=== PATIENT | female | born 1990 | race Caucasian/White ===

== ENCOUNTER 2020-06-09 17:06 | Outpatient (CLI) | payer BC ==
[2020-06-09] MEDS ORDERED: ALDOMET250 MG PO (17:37)
[2020-06-09] MEDS ORDERED: PEPCID40 MG PO (17:38)
[2020-06-09] MEDS ORDERED: PRENAVITE1 TAB PO (17:38)
[2020-06-09] MEDS ORDERED: CELEXA20 MG PO (17:38)
[2020-06-09] MEDS ORDERED: SINGULAIR10 MG PO (17:38)
[2020-06-09 18:19] LABS: BASOPHILS 0.1 % (0-2); HEMATOCRIT 35.9 % (36.0-48.0); HEMOGLOBIN 11.8 g/dL (12-16); IMMATURE GRANULOCYTES 0.6 % (0-5); LYMPHOCYTE ABS# 1.84 10x3/uL (1.18-3.74); LYMPHOCYTES 12.3 % (15-50); MCH 29.2 pg (26.0-34.0); MCHC 32.9 g/dL (31.0-37.0); MCV 88.9 fL (80.0-100.0); MEAN PLATELET VOLUME 11.6 fL (7.4-10.4); MONOCYTES 5.8 % (2-11); NEUTROPHIL ABS# 12.02 10x3/uL (1.56-6.13); NEUTROPHILS 80.2 % (40-80); PLATELET COUNT 209 10x3/uL (130-400); RBC 4.04 10x6/uL (4.00-5.40); RDW 13.8 % (11.5-14.5)
[2020-06-09 18:29] LABS: CALC OSMOLALITY 275 mosm/kg (275-300); CALCIUM 9.4 mg/dL (8.5-10.1); CARBON DIOXIDE 24.7 mmol/L (21.0-32.0); CHLORIDE - SERUM 104 mmol/L (98-107); CREATININE - SERUM 0.7 mg/dL (0.6-1.3); GLUCOSE 112 mg/dL (74-106); POTASSIUM - SERUM 3.9 mmol/L (3.5-5.1); SODIUM 138 mmol/L (136-145); UREA NITROGEN 10 mg/dL (7-18); eGFR NON AFRICAN AMERICAN > 90 mL/min (90-120)
[2020-06-09 18:29] LABS: CREATININE - URINE 184.7 mg/dL (30-125); PRO/CRE RATIO URINE 0.2 mg/g; PROTEIN - URINE 39.5 mg/dL (0.0-11.9)
[2020-06-09 18:35] LABS: ALBUMIN 2.4 g/dL (3.4-5.0); ALKALINE PHOSPHATASE 98 U/L (30-120); ALT (SGPT) 11 U/L (10-68); BILIRUBIN - INDIRECT 0.16 mg/dL (0.00-1.00); BILIRUBIN - TOTAL 0.19 mg/dL (0.2-1.3)
[2020-06-09 18:37] LABS: BILIRUBIN - DIRECT 0.03 mg/dL (0.00-0.30)
--- NOTE | 2020-06-10 04:24 | NUR ---
monitors applied for NST
--- NOTE | 2020-06-10 04:31 | NUR ---
labetalol 200mg po per md orders, see emar
== END 2020-06-10 11:00 | disposition home or self-care (01) ==
LOC: D.LDO 17:06 → D.LD 19:39 → D.LDO 06-10 11:00
PROVIDERS: ATTEND Student in an Organized Health Care Education/Training Program
DX: O47.9 False labor, unspecified (principal)

== ENCOUNTER 2020-06-13 21:41 | Inpatient (IN) | payer BC ==
[~2020-06-13] VITALS: Ht 170.2 cm; Wt 139.7 kg
[~2020-06-13 21:41] MED LIST: ALDOMET250 MG PO; CELEXA20 MG PO; PEPCID40 MG PO; PRENAVITE1 TAB PO; SINGULAIR10 MG PO
[2020-06-13 23:08] LABS: BASOPHILS 0.1 % (0-2); EOSINOPHILS 0.9 % (0-7); HEMATOCRIT 35.3 % (36.0-48.0); HEMOGLOBIN 11.4 g/dL (12-16); IMMATURE GRANULOCYTES 0.4 % (0-5); LYMPHOCYTE ABS# 1.91 10x3/uL (1.18-3.74); LYMPHOCYTES 14.8 % (15-50); MCHC 32.3 g/dL (31.0-37.0); MCV 89.8 fL (80.0-100.0); MEAN PLATELET VOLUME 11.7 fL (7.4-10.4); MONOCYTES 6.3 % (2-11); NEUTROPHIL ABS# 10.01 10x3/uL (1.56-6.13); NEUTROPHILS 77.5 % (40-80); PLATELET COUNT 237 10x3/uL (130-400); RBC 3.93 10x6/uL (4.00-5.40); RDW 13.9 % (11.5-14.5); WBC 12.9 10x3/uL (4.8-10.8)
[2020-06-13 23:22] LABS: CALC OSMOLALITY 278 mosm/kg (275-300); CALCIUM 9.2 mg/dL (8.5-10.1); CARBON DIOXIDE 25.4 mmol/L (21.0-32.0); CHLORIDE - SERUM 107 mmol/L (98-107); CREATININE - SERUM 0.7 mg/dL (0.6-1.3); GLUCOSE 93 mg/dL (74-106); POTASSIUM - SERUM 4.5 mmol/L (3.5-5.1); SODIUM 140 mmol/L (136-145); UREA NITROGEN 13 mg/dL (7-18); eGFR NON AFRICAN AMERICAN > 90 mL/min (90-120)
[2020-06-13 23:28] LABS: ALBUMIN 2.4 g/dL (3.4-5.0); ALKALINE PHOSPHATASE 103 U/L (30-120); ALT (SGPT) 11 U/L (10-68); BILIRUBIN - INDIRECT 0.14 mg/dL (0.00-1.00); BILIRUBIN - TOTAL 0.18 mg/dL (0.2-1.3); URIC ACID 7.7 mg/dL (2.6-7.2)
[2020-06-13 23:30] LABS: BILIRUBIN - DIRECT 0.04 mg/dL (0.00-0.30)
[2020-06-14] MEDS ORDERED: NORMODYNE / TR100 MG PO (00:55)
[2020-06-14 00:56] VITALS: BP 144/90; BMI 48.3
[2020-06-14 09:14] LABS: UDS - AMPHET NEGATIVE QUAL (NEGATIVE); UDS - BARB NEGATIVE QUAL (NEGATIVE); UDS - BENZO NEGATIVE QUAL (NEGATIVE); UDS - COCAINE NEGATIVE QUAL (NEGATIVE); UDS - OPIATE NEGATIVE QUAL (NEGATIVE); UDS - PCP NEGATIVE QUAL (NEGATIVE); UDS - THC NEGATIVE QUAL (NEGATIVE)
[2020-06-14 09:53] VITALS: Ht 170.2 cm; Wt 139.7 kg
--- NOTE | 2020-06-14 15:54 | NUR ---
UP TO BR, VOIDED 800 MLS. INSTRUCTED ON PERICARE WITH RETURN DEMONSTATION FROM PT WITH PERICARE WASH WITH BETADINE, TUX, AND DERMAPLAST. STEADY GAIT NOTED. CHUX CHANGED. QBL ON TOWEL AND CHUX 23 MLS. ICE WATER PROVIDED. DENIES ADDITIONAL NEEDS. BED IN LOW POSITION WITH SRUP X2. CALL LIGHT AND PHONE WITHIN REACH.
--- NOTE | 2020-06-14 19:20 | NUR ---
THIS RN AND Debbie CARDOSO RN TO BEDSIDE FOR BEDSIDE SHIFT ASSESSMENT. UPON ENTERING THE ROOM, PT FOUND TO BE SITTING UP IN BED ASLEEP W/BABY UP IN ARMS. PT WAKENED AND EDUCATED ON INFANT SAFETY. PLACED IN OPEN CRIB AT BEDSIDE. SHIFT ASSESSMENT COMPLETED. SEE FLOWSHEET. PT DENIES PAIN. REPORTS SIG OTHER IS BRINGING THEM SUPPER AND DRINKS, THEREFORE DENIES NEEDS AT THIS TIME.
[2020-06-14 19:21] VITALS: BP 133/71
--- NOTE | 2020-06-14 20:45 | NUR ---
ROUNDS MADE. PT SITTING UP IN BED VISITING W/SIG OTHER. DENIES PAIN OR NEEDS AT THIS TIME.
--- NOTE | 2020-06-14 21:40 | NUR ---
RN TO BEDSIDE TO INFORM PT THAT CARE WILL BE TURNED OVER TO Debbie ANSARI RN AT THIS TIME. PT CURRENTLY SITTING IN BED W/SPOUSE AND BABY. DENIES PAIN OR NEEDS.
--- NOTE | 2020-06-14 22:30 | NUR ---
TAKING OVER CARE FOR THIS PT. SHE IS AWAKE AND ALERT TRYING TO FEED THE BABY. SHE HAS NO C/O AT THIS TIME. MEDICATION GIVEN PO.
--- NOTE | 2020-06-14 22:30 | NUR ---
REPORT GIVEN TO Debbie ANSARI RN
--- NOTE | 2020-06-15 | NUR ---
STILL AWAKE AND HOLDING BABY. NO C/O. AT BEDSIDE.
--- NOTE | 2020-06-15 02:40 | NUR ---
PT IS SLEEPING. NO C/O OR NEEDS AT THIS TIME
[2020-06-15 04:30] VITALS: BP 117/66
--- NOTE | 2020-06-15 04:30 | NUR ---
PT IS RESTING QUIETLY. NO C/O. SHE WAS AWAKE FOR VS.
[2020-06-15 05:42] LABS: BASOPHILS 0.2 % (0-2); EOSINOPHILS 1.2 % (0-7); HEMATOCRIT 32.6 % (36.0-48.0); HEMOGLOBIN 10.3 g/dL (12-16); IMMATURE GRANULOCYTES 0.3 % (0-5); LYMPHOCYTES 20.8 % (15-50); MCH 28.7 pg (26.0-34.0); MCHC 31.6 g/dL (31.0-37.0); MCV 90.8 fL (80.0-100.0); MEAN PLATELET VOLUME 11.8 fL (7.4-10.4); MONOCYTES 7.5 % (2-11); NEUTROPHIL ABS# 8.44 10x3/uL (1.56-6.13); RBC 3.59 10x6/uL (4.00-5.40)
[2020-06-15 05:51] LABS: PLATELET COUNT 183 10x3/uL (130-400)
--- NOTE | 2020-06-15 06:50 | NUR ---
PT IS UP AND GETTING DRESSED. SHE HAS NO C/O AT THIS TIME. NO NEEDS
[2020-06-15 07:15] LABS: RAPID PLASMA REAGIN Non Reactive (Non Reactive)
[2020-06-15 07:31] VITALS: BP 137/79
--- NOTE | 2020-06-15 07:31 | NUR ---
PT LYING SUPINE IN BED. AWAKE. AAO X 3. VSS. HRRR WITHOUT AUDIBLE MURMUR. BBS CLEAR. BS X 4. ABDOMEN SOFT/NON-DISTENDED. STATES PASSING GAS AND HAD BM LAST PM. FUNDUS FIRM AT U/U. RUBRA LOCHIA SMALL AMT. PT STATES HAS PASSED A FEW SMALL CLOTS. PT INSTRUCTED TO NOTIFY NURSE OF PASSING CLOTS SIZE OF EGG OR BIGGER/SOAKING PAD IN ONE HOUR. PT VERBALIZES UNDERSTANDING. NEG HOMANS' SIGN. PPP. 1+/1+ PITTING EDEMA NOTED TO ANKLES. PT STATES VOIDING WITHOUT DIFFICULTY. SL TO LEFT HAND. SITE CLEAR. PT DENIES PAIN OR NEEDS. SR UP X 2. CALL LIGHT IN REACH.
--- NOTE | 2020-06-15 08:53 | NUR ---
PT PETROL TANKER DRIVER LIGHT. THIS NURSE TO ROOM. PT IN BATHROOM. PERINEUM INSPECTED WITHOUT HEMATOMA, ETC. SKIN INTACT. PT C/O PAIN TO PERINEUM OF "2-3" ON 0-10 PAIN SCALE. MOTRIN 600 MG GIVEN PO PER PT REQUEST. INSTRUCTED ON MED. VERBALIZES UNDERSTANDING.
--- NOTE | 2020-06-15 09:40 | NUR ---
PT SITTING UP IN BED. TALKING ON PHONE. STATES PAIN RELIEVED. DENIES NEEDS OR C/O.
--- NOTE | 2020-06-15 11:00 | NUR ---
PT SITTING UP IN BED. PLAYING CARDS WITH SO. DENIES PAIN OR NEEDS.
--- NOTE | 2020-06-15 12:30 | NUR ---
DR DE ANDA VISITS WITH PT. ORDERS RECEIVED.
--- NOTE | 2020-06-15 13:00 | NUR ---
PT SITTING UP IN BED. VISITING WITH SO. DENIES NEEDS OR C/O.
--- NOTE | 2020-06-15 14:35 | NUR ---
DISCHARGE INSTRUCTIONS GIVEN TO PT. PT VERBALIZES UNDERSTANDING OF ALL INSTRUCTIONS. COPIES GIVEN TO PT. PT STATES FAMILY MEMBER TO BRING PT BP MED TO PT. PT GIVEN INSTRUCTIONS ON ROOMING IN AND POLICY. FORM EXPLAINED TO AND SIGNED BY PT. PT GIVEN LABETALOL 200 MG PO ORDERED.
--- NOTE | 2020-06-15 14:55 | NUR ---
PT READY FOR DISCHARGE. DISCHARGED IN STABLE CONDITION VIA AMBULATORY TO ROOM 1220. PT ORIENTED TO ROOM. PT DISCHARGED TO ROOMING IN STATUS.
== END 2020-06-15 14:55 | disposition home or self-care (01) | DRG 807 ==
LOC: D.LABREF 21:41 → D.LD 21:41 → D.LDO 21:41 → D.LD 22:32 → D.LDO 06-14 01:03 → D.LD 06-14 01:04
PROVIDERS: Student in an Organized Health Care Education/Training Program; ADMIT Obstetrics & Gynecology; ATTEND Obstetrics & Gynecology
PROC: 10E0XZZ Delivery of Products of Conception, External Approach (ICD-10-PCS; principal; 2020-06-14)
PROC: 0HQ9XZZ Repair Perineum Skin, External Approach (ICD-10-PCS; 2020-06-14)
DX: O13.4 Gestational [pregnancy-induced] hypertension without significant proteinuria, complicating childbirth (principal); Z37.0 Single live birth; Z3A.36 36 weeks gestation of pregnancy; O70.0 First degree perineal laceration during delivery; O99.824 Streptococcus B carrier state complicating childbirth; O60.14X0 Preterm labor third trimester with preterm delivery third trimester, not applicable or unspecified